=== PATIENT | male | born 1950 | race Hispanic/Latino ===

== ENCOUNTER → 2021-09-13 | Outpatient (CLI) | payer MEDICARE ==
[~2021-09-13] MED LIST: CYANOCOBAL1000 MCG/M IM; FLOMAX0.4 MG PO; HYDROCODON-ACE1 EAC9 PO; IOPAMIDOL 370 MG/ML 200 ML INFUS..BTL INJ ONE; PHENTERMINE H37.5 M1 PO; SODIUM CHLORIDE 0.9% 50ML 50 ML ONE; TESTOSTERO200 MG/1 M IM; VITAMIN D250000 UNIT PO; VOLTAREN100 GM TOP
[2021-09-13 14:33] LABS: CREATININE, SERUM 0.79 mg/dL (0.72-1.25)
== END ==
LOC: CT 13:26
PROVIDERS: ATTEND Surgery
DX: R22.0 Localized swelling, mass and lump, head (principal)
CPT/HCPCS: 36415; 70487; 82565; 84520; Q9967